=== PATIENT | female | born 1990 | race Caucasian/White ===

== ENCOUNTER 2017-11-28 13:05 | Emergency (ER) | payer OTHER ==
[~2017-11-28] VITALS: Ht 175.3 cm; Wt 74.8 kg
[2017-11-28] MEDS ORDERED: KETOROLAC TROME10 MG PO (15:26)
[2018-02-15] MEDS ORDERED: OXYCODONE HCL5 MG PO (18:15)
[2018-02-15] MEDS ORDERED: ZOFRAN4 MG PO (18:15)
== END 2017-11-28 15:35 | disposition home or self-care (01) ==
LOC: ED 13:05
DX: R10.30 Lower abdominal pain, unspecified (principal); F17.200 Nicotine dependence, unspecified, uncomplicated; Z90.49 Acquired absence of other specified parts of digestive tract; Z90.89 Acquired absence of other organs; Z98.890 Other specified postprocedural states; Z88.0 Allergy status to penicillin; Z88.5 Allergy status to narcotic agent; Z88.8 Allergy status to other drugs, medicaments and biological substances
CPT/HCPCS: 74177; 80053; 81001; 82150; 83690; 84703; 85025; 96361; 96374; 96375; 99284; J1170; J2405; J7030; Q9967

== ENCOUNTER 2018-01-27 17:10 | Emergency (ER) | payer OTHER ==
[~2018-01-27] VITALS: Ht 175.3 cm; Wt 74.8 kg
[~2018-01-27 17:10] MED LIST: KETOROLAC TROME10 MG PO
[2018-01-27] MEDS ORDERED: PYRIDIUM200 MG PO (18:59)
[2018-01-27] MEDS ORDERED: CIPRO250 MG PO (18:59)
[2018-01-28] MEDS ORDERED: BENADRYL25 MG PO (16:55)
[2018-01-28] MEDS ORDERED: MELATONIN1 MG PO (16:56)
[2018-02-15] MEDS ORDERED: OXYCODONE HCL5 MG PO (18:15)
[2018-02-15] MEDS ORDERED: ZOFRAN4 MG PO (18:15)
== END 2018-01-27 19:17 | disposition home or self-care (01) ==
LOC: ED 17:10
DX: N39.0 Urinary tract infection, site not specified (principal); F17.200 Nicotine dependence, unspecified, uncomplicated; Z88.0 Allergy status to penicillin; Z88.8 Allergy status to other drugs, medicaments and biological substances; Z88.5 Allergy status to narcotic agent
CPT/HCPCS: 74176; 80053; 81001; 84703; 85025; 87088; 96374; 96375; 99284; J1170; J1885; J2405

== ENCOUNTER 2018-01-28 12:32 | Inpatient (IN) | payer OTHER ==
[~2018-01-28] VITALS: Ht 175.3 cm; Wt 75.5 kg
[~2018-01-28 12:32] MED LIST changes: +CIPRO250 MG PO; +PYRIDIUM200 MG PO
--- NOTE | 2018-01-28 16:07 | NUR ---
PT ARRIVED BY STRETCHER, ALERT AND ORIENTED. PT ORIENTED TO ROOM, VITAL SIGNS TAKEN, ADMISSION ASSESSMENT COMPLETE AND CHARTED. DR WORLEY CAME IN TO DISCUSS UPDATED PLAN OF CARE AND CHANGES TO ABX.
[2018-01-28] MEDS ORDERED: BENADRYL25 MG PO (16:55)
[2018-01-28] MEDS ORDERED: MELATONIN1 MG PO (16:56)
--- NOTE | 2018-01-28 16:56 | NUR ---
MED REC COMPLETE
--- NOTE | 2018-01-28 17:54 | NUR ---
GAVE PT A WARM PACK TO ASSIST WITH PAIN. NO PAIN MEDS AVAILABLE FOR 2 MORE HOURS. PT HAS FAMILY VISITING. NO NEEDS AT THIS TIME.
--- NOTE | 2018-01-28 18:51 | NUR ---
PATIENT SITTING UP IN BED RESTING. PATIENT STATED PAIN WAS A 7 OUT OF 10. PATIENT ASKED WHEN NEXT PAIN MED WAS, THIS SENIOR ACCOUNTANT CPA TOLD HER SHE DID NOT KNOW BUT WOULD ASK THE NURSE. RN NOTIFIED. CALL LIGHT IN REACH. FRESH ICE WATER AT BEDSIDE. NO OTHER NEEDS AT THIS TIME.
--- NOTE | 2018-01-28 19:05 | NUR ---
RECEIVED REPORT FROM RN. PATIENT IS RESTING IN BED, BREATHING IS EVEN AND UNLABORED. REPORTS 7/10 PAIN IN ABD. CALL LIGHT WITHIN REACH.
--- NOTE | 2018-01-28 19:12 | NUR ---
CALLED DR WORLEY RE: PAIN CONTROL. IV DILAUDID NOT EFFECTIVE IN CONTROLLING PAIN FOR 3 HOURS. TELEPHONE ORDER TO CHANGE TO PERCOCET 10-325, 1 TAB Q4HRS PRN FOR PAIN.
--- NOTE | 2018-01-28 20:00 | NUR ---
PATIENT CONTINUES TO HAVE 7/10 PAIN IN PELVIS AND 5/10 BILATERAL FLANK PAIN. PRN DILAUDID AND PERCOCET GIVEN PER EMAR. DENIES FURTHER NEEDS. ASSESSMENT DONE. CALL LIGHT WITHIN REACH.
--- NOTE | 2018-01-28 23:07 | NUR ---
PT CALLED WITH COMPLAINTS OF NAUSEA AND PAIN AT 05/13. ADMINISTERED ZOFRAN AND DILAUDID. PT DENIES FURTHER NEEDS AT THIS TIME.
--- NOTE | 2018-01-28 23:27 | NUR ---
UPDATED DR. WORLEY REGARDING PATIENT'S PAIN. RECEIVED ORDER TO INCREASE PERCOCET TO 2 TABS Q[address]. ALSO UPDATED DR. WORLEY REGARDING BLOODY URINE. RECEIVED NO NEW ORDERS REGARDING URINE, RN TO MONITOR FOR THE NIGHT.
--- NOTE | 2018-01-29 00:27 | NUR ---
PATIENT REPORTS 6/10 PAIN IN PELVIS, PRN PERCOCET GIVEN PER EMAR. PATIENT DENIES FURTHER NEEDS. CALL LIGHT WITHIN REACH.
--- NOTE | 2018-01-29 01:59 | NUR ---
PATIENT REPORTS 5/10 PELVIC PAIN, PRN TYLENOL GIVEN PER EMAR. BP OF 95/60 NOTED, WILL CONTINUE TO MONITOR. PATIENT DENIES NEEDS AT THIS TIME. CALL LIGHT WITHIN REACH.
--- NOTE | 2018-01-29 04:35 | NUR ---
PATIENT RESTING IN BED, REPORTS 6/10 PAIN IN PELVIS AND FLANK. PRN PERCOCET GIVEN PER EMAR, SL ZOFRAN GIVEN FOR NAUSEA. DENIES FURTHER NEEDS. CALL LIGHT WITHIN REACH.
--- NOTE | 2018-01-29 05:04 | NUR ---
PATIENT HAS BEEN SLEEPING OFF AND ON THROUGHOUT SHIFT, VSS, URINE OUTPUT QS, PAIN NOW WELL CONTROLLED WITH INCREASE IN PRN PAIN MEDICATION. PAIN REMAINS IN PELVIS AND FLANK. PATIENT HAS HAD BLOODY URINE THIS SHIFT, MD WAS MADE AWARE, ORDERED TO MONITOR OVER NIGHT; NO WORSENING OR IMPROVEMENT. TOLERATING CLEAR LIQUID DIET, PATIENT STATES "I AM READY FOR SOME REAL FOOD." IV FLUIDS INFUSING, SBA TO BATHROOM. NO ACUTE CHANGES FROM BEGINNING OF SHIFT.
--- NOTE | 2018-01-29 06:57 | NUR ---
PATIENT RESTING COMFORTABLY IN BED, BREATHING IS EVEN AND UNLABORED. REPORTS 6/10 PAIN IN PELVIS, PRN PAIN MEDICATION GIVEN PER EMAR. DENIES FURTHER NEEDS. CALL LIGHT WITHIN REACH.
--- NOTE | 2018-01-29 08:30 | NUR ---
IN ROOM TO SEE PATIENT.
--- NOTE | 2018-01-29 08:40 | NUR ---
md at bedside to remove pts IUD. Pt tolerated well but requesting pain medication following removal.
--- NOTE | 2018-01-29 08:59 | NUR ---
PATIENT RESTING IN BED READING HER EDUCATION. PATIENT STATED SHE JUST HAD GOTTEN UP AND WIPED DOWN IN THE BATHROOM AND CHANGED INTO A CLEAN GOWN. THIS CHANGE AGENT SET PATIENT UP IN BATHROOM FOR ORAL CARE. PATIENT STATED SHE HAD DENTURES BUT PROBABLY WOULDN'T TAKE THEM OUT WHILE HERE BECAUSE SHE IS UNCOMFORTABLE ABOUT IT. PATIENT STATED SHE FELT NAUSEOUS BUT WOULD LIKE HER BREAKFAST TRAY LEFT IN HER ROOM IN CASE SHE FEELS BETTER LATER. CALL LIGHT IN REACH. NO OTHER NEEDS AT THIS TIME.
--- NOTE | 2018-01-29 09:14 | NUR ---
PT COMPLAINED OF NAUSEA AND ABD PAIN. PAIN /10. GAVE 2 TABS PERCOCET 10/325 PO. AT THIS TIME ALSO GAVE 4MG ZOFRAN IV.
--- NOTE | 2018-01-29 09:20 | NUR ---
GAVE 0.5MG DILAUDID IV.
--- NOTE | 2018-01-29 10:00 | NUR ---
IN ROOM TO CHECK ON PTS PAIN. PT STATED, "MY PAIN IS BETTER. ITS IS AT A 4." WILL CONTINUE TO MONITOR PTS PAIN.
--- NOTE | 2018-01-29 10:57 | NUR ---
PATIENT RESTING IN BED EYES CLOSED. PATIENT STATES PAIN HAS BEEN AT A 4 OUT OF 10. CALL LIGHT IN REACH. FRESH ICE WATER AT BEDSIDE TABLE. NO OTHER NEEDS AT THIS TIME.
--- NOTE | 2018-01-29 11:15 | NUR ---
PT REQUESTING AILEEN PAD AND UNDERWEAR. REPORTS HAVING SMALL AMOUNT OF VAGINAL BLEEDING. WILL CONTINUE TO MONITOR.
--- NOTE | 2018-01-29 12:50 | NUR ---
IN ROOM TO CHECK ON PT. DENIES NEED FOR PAIN MEDICATION AT THIS TIME.
--- NOTE | 2018-01-29 13:11 | NUR ---
PATIENT LAYING DOWN RESTING IN BED. PATIENT STATES SHE IS STILL TOO NAUSEOUS TO EAT. RN NOTIFIED. FRESH ICE WATER AT BEDSIDE TABLE. CALL LIGHT IN REACH. NO OTHER NEEDS AT THIS TIME.
--- NOTE | 2018-01-29 13:28 | NUR ---
pt rating pain 6/10 in lower adbomen. gave 0.5mg dilaudid iv. while in room pt up to bathroom. standby asssit. pt continues to have small amount of vaginal bleeding.
--- NOTE | 2018-01-29 16:01 | NUR ---
PATIENT RESTING WITH EYES CLOSED. FRESH ICE WATER AT BEDSIDE. CALL LIGHT IN REACH. NO OTHER NEEDS AT THIS TIME.
--- NOTE | 2018-01-29 16:16 | NUR ---
pt complained of pain 04/13. gave 2 tabs percocet 10/325 po.
--- NOTE | 2018-01-29 17:45 | NUR ---
in room with ptEdgar
--- NOTE | 2018-01-29 18:09 | NUR ---
PATIENT RESTING IN BED. PATIENT STATES SHE IS NAUSEATED AND ASKED FOR AN EMESIS BAG. RN IN ROOM. FRESH ICE WATER ON BEDSIDE TABLE. CALL LIGHT IN REACH. NO OTHER NEEDS AT THIS TIME.
--- NOTE | 2018-01-29 18:12 | NUR ---
PT HAD EMESIS X1 GAVE 12.5MG PHENERGAN IV.
--- NOTE | 2018-01-29 19:05 | NUR ---
RECEIVED REPORT FROM RN. PATIENT IS RESTING COMFORTABLY IN BED, BREATHING IS EVEN AND UNLABORED. FLACC SCORE OF 0. CALL LIGHT WITHIN REACH.
--- NOTE | 2018-01-29 20:32 | NUR ---
PATIENT RESTING COMFORTABLY IN BED, BREATHING IS EVEN AND UNLABORED. REPORTS 6/10 PAIN IN PELVIS. PRN DILAUDID GIVEN PER EMAR, BP OF 111/75, PULSE IS 64, RR OF 16 NOTED. WILL CONTINUE TO MONITOR. PATIENT DENIES FURTHER NEEDS. CALL LIGHT WITHIN REACH.
--- NOTE | 2018-01-29 23:03 | NUR ---
PATIENT IS RESTING COMFORTABLY IN BED, BREATHING IS EVEN AND UNLABORED. REPORTS NAUSEA, 5/10 PAIN IN PELVIS. PRN PROMETHAZINE GIVEN PER EMAR. IV INTACT, NO SIGNS OF INFILTRATION OR IMFLAMMATION. EDUCATED PATIENT TO NOTIFY NURSE OF PAIN AT IV SITE, PATIENT STATES UNDERSTANDING. CALL LIGHT WITHIN REACH.
--- NOTE | 2018-01-30 00:03 | NUR ---
PATIENT RESTING IN BED, BREATHING IS EVEN AND UNLABORED. REPORTS 6/10 PAIN IN PELVIS, PRN DILAUDID GIVEN PER EMAR. BP OF 101/54, PULSE IS 59, RR OF 16 NOTED. WILL CONTINUE TO MONITOR VITAL SIGNS. PATIENT REPORTS THAT IV PROMETHAZINE RELIEVED NAUSEA. NO FURTHER NEEDS AT THIS TIME. CALL LIGHT WITHIN REACH.
--- NOTE | 2018-01-30 04:34 | NUR ---
PATIENT RESTING COMFORTABLY IN BED, BREATHING IS EVEN AND UNLABORED, FLACC SCORE OF 0. CALL LIGHT WITHIN REACH.
--- NOTE | 2018-01-30 05:25 | NUR ---
PATIENT'S NIGHT WAS UNEVENTFUL. SHE HAS BEEN RESTING IN BED THROUGHOUT SHIFT. VSS, URINE OUTPUT QS. CONTINUES TO COMPLAIN OF 5 TO 6/10 PAIN IN PELVIS, RECEIVING IV DILAUDID PRN. CONTINUES TO HAVE SMALL AMOUNT OF BLOOD FROM VAGINA, NO ACUTE CHANGES. IV FLUIDS INFUSING, NPO SINCE MIDNIGHT. SBA IN ROOM, CALLS APPROPRIATELY. NO ACUTE CHANGES FROM BEGINNING OF SHIFT.
--- NOTE | 2018-01-30 06:48 | NUR ---
UPDATED DR. WORLEY REGARDING PATIENT'S HYPOTENSION AND BRADYCARDIA. PATIENT STATES SHE IS HAVING 6/10 PAIN IN PELVIS. PER MD, NO MEDICATION TO BE ADMINISTERED UNTIL AFTER HE IS ABLE TO ASSESS HER. NO OTHER ORDERS AT THIS TIME.
--- NOTE | 2018-01-30 07:33 | NUR ---
PATIENT RESTIN IN BED ON LEFT SIDE. UPDATED BOARD AND WARM BLANKET GIVEN. ANTONIA LIGHT IN REACH, NO OTHER NEEDS.
--- NOTE | 2018-01-30 08:21 | NUR ---
PT TO OR WITH [facility] SURGERY RN. INFORMED CONSENT SIGN AND ON CHART. PRE SURGICAL WIPES COMPLETED. PT REFUSED ORAL ANTIBIOTIC DUE TO NAUSEA.
--- NOTE | 2018-01-30 09:42 | NUR ---
PATIENT IN SURGERY. LINENS CHANGED, GARBAGE EMPTIED.
--- NOTE | 2018-01-30 11:18 | NUR ---
01/30/18 1118 Lakeshia Kovacs 1111 PT ARRIVED NONAROUSABLE WITH ORAL AIRWAY IN PLACE MAINTAINING AIRWAY. VSS. RESP EVEN AND UNLABORED. 1118 DECREASED O2 TO 8L O2 SAT 100%.
--- NOTE | 2018-01-30 12:15 | NUR ---
PT RECEIVED FROM PACU. PT RATING PAIN 5/10, DROWSY BUT AROUSABLE TO VOICE. PT GIVEN 0.5 MG IV DIALUDID FOR PAIN. PT ONB 2L NC, LUNG SOUNDS CLEAR, CONTINUOUS PULSE OX IN PLACE. PT WITH LAP SITES X3, SMALL AMOUNT OF SHADOWING TO BILATERAL LOW ABD DRESSINGS. PT CONTINUES TO COMPLAIN OF NAUSEA, CLEAR LIQUID DIET, PT ENCOURAGED TO DRINK SLOWLY. DISCUSSED PLAN OF CARE AND POST-OP TEACHING. PT DENIES OTHER NEEDS AT THIS TIME.
--- NOTE | 2018-01-30 13:00 | NUR ---
PT CONTINUES TO BE SLEEPY POST-OP, AROUSABLE TO VOICE. VSS. PT STATES PAIN 4/10. LAP SITES WILL SMALL AMOUNT OF SHADOWING, UNCHANGED FROM ARRIVAL TO FLOOR. PT DENIES OTHER NEEDS AT THIS TIME.
--- NOTE | 2018-01-30 14:40 | NUR ---
PT REQUESTING PAIN MEDICATION, RATING PAIN 7/10, GIVEN 0.5 MG IV DILAUDID. PT MORE AWAKE, ENCOURAGED TO ATTEMPT CLEAR LIQUID DIET. PT VERBALIZED UNDERSTANDING, ATTEMPTING TO EAT JELLO. PT WEANED TO ROOM AIR, O2 SATS 96%. PT ASSISTED TO BATHROOM, VOIDED WITHOUT DIFFICULTY, URINE BLOOD TINGES, SMALL CLOTS VISIBLE IN HAT. ASSISTED BACK TO BED. PT DENIES OTHER NEEDS AT THIS TIME.
--- NOTE | 2018-01-30 15:26 | NUR ---
PT RESTING IN BED. VSS. TOLERATING ROOM AIR, O2 SATS 96%. PT TOLERATING CLEAR LIQUID, ADVANCED TO REGULAR DIET, ASSISTED WITH ORDERING FOOD. PT DENIES OTHER NEEDS AT THIS TIME. LUNG SOUNDS CLEAR. BOWLE TONES HYPOACTIVE, PT HAS PASSED FLATUS.
--- NOTE | 2018-01-30 16:15 | NUR ---
PT TOLERATING REGULAR DIET, DENIES NAUSEA. PT GIVEN 1 TAB PERCOCET AND 800 MG IBUPROFEN. DISCUSSED PAIN MANAGEMENT WITH PT, VERBALIZED UNDERSTANDING. PT DENIES OTHER NEEDS AT THIS TIME.
--- NOTE | 2018-01-30 16:58 | NUR ---
PATIENT WATCHING TV IN BED. VITALS AND I/OS DONE. RT IN TO READ PULSE OX NUMBERS. CALL LIGHT IN REACH
[2018-01-30] MEDS ORDERED: PERCOCET 5-3251 EACH PO (18:18)
[2018-01-30] MEDS ORDERED: IBUPROFEN800 MG PO (18:19)
[2018-01-30] MEDS ORDERED: DOXYCYCLINE HY100 MG PO (18:19)
[2018-01-30] MEDS ORDERED: ZOFRAN ODT4 MG PO (18:28)
--- NOTE | 2018-02-01 09:45 | OR ---
[facility] [address] [place], [place] [address] Signed DATE OF OPERATION: 01/30/2018 SURGEON: Clarence Mckay MD PREOPERATIVE DIAGNOSES: Pelvic pain, bilateral hemorrhagic ovarian cyst, and pelvic inflammatory disease. POSTOPERATIVE DIAGNOSES: Pelvic pain, bilateral hemorrhagic ovarian cysts, and pelvic inflammatory disease. PROCEDURE: Laparoscopic right ovarian cystectomy. TRUST MANAGER: Dr. Freitas. ANESTHESIA: General. ESTIMATED BLOOD LOSS: 25 mL. SPECIMEN: Ovarian cyst wall. CULTURES: None. DRAINS: None. FINDINGS: Normal cervix. Normal size, shaped uterus. Anterior and posterior cul-de-sac was free of any endometriosis or adhesions. There was a small amount of clear fluid within the posterior cul-de-sac. Left tube was normal in length and the normal-appearing fimbriated end and the left ovary is normal size and shape without any evidence of endometriosis or adhesions. No cyst seen. Right tube was normal in length and normal-appearing fimbriated end and no adhesions. Right ovary was enlarged with a 2.5 cm hemorrhagic ovarian cyst in the posterior aspect of the ovary. There were no adhesions or lesions seen. The appendix appeared normal. The rest of the pelvis was Electronically Signed By: CLARENCE MCKAY MD 02/01/18 0945 PATIENT NAME: YULIANA LIM OPERATIVE REPORT DATE OF : 88 REPORT #: [id number] PHYSICIAN: CLARENCE MCKAY MD PCP: AMBER BELL REPORT IS CONFIDENTIAL AND NOT TO BE RELEASED WITHOUT AUTHORIZATION [facility] [address], [place] [address] Signed free of any masses or adhesions. COMPLICATIONS: None. DESCRIPTION OF PROCEDURE: The patient was brought to the operating room and placed in supine position. After adequate general anesthesia was obtained, she was placed in dorsal lithotomy position, prepped and draped in usual sterile fashion. Coleman catheter was placed in the bladder. Weighted speculum was placed in the vagina and the anterior lip of cervix grasped with an Allis clamp. Uterine cavity was sounded to 9 cm and Hulka clamp carefully introduced into the cervical canal, attached to the anterior lip of the cervix. The Allis clamp and weighted speculum were removed. Attention was then drawn to the abdomen. A small infraumbilical skin incision was made through previous surgical scar after injecting with 0.5% Marcaine. Subcutaneous tissue was grasped with hemostats elevated and nicked with Metzenbaum scissors. The fascia was identified, grasped with hemostats elevated and nicked with Metzenbaum scissors, and extended transverse fashion using Metzenbaum scissors. Retention stitches of 0 Vicryl suture was placed in the fascia above and below the incision. Peritoneum was opened with blunt dissection and an S retractor inserted into the incision and spun 360 degree fashion showing good placement in the abdomen and no adhesions noted. The Aneudy cannula and sleeve entered the abdomen along the S retractor. The S retractor was then removed and the sleeve tied in place with the retention stitches. The trocar was removed and the laparoscope with video attachment entered the abdomen under direct visualization. Carbon dioxide was used as distending medium, the above findings were noted. A small skin incision was made in the left lower quadrant after transilluminating the area to avoid any vessels and injecting the area with 0.5% Marcaine. A bladed 5 mm trocar and sleeve then placed through the incision and entered the abdomen under direct visualization. Trocar was removed and the blunt probe inserted. Sleeve was placed on the right side in the exact same fashion and the blunt probe inserted. The above findings were confirmed. The fluid was irrigated from the cul-de-sac. The right ovary was grasped with blunt graspers and elevated and a small tip Bovie was used to open the right cyst wall and thin avascular portion and thin blood was noted to come from the cyst. The incision was opened further using the Bovie and the cyst irrigated and then the cyst wall could be identified and this was grasped with graspers and gently pulled free of the ovary. The cyst wall did come out in several pieces, but cyst wall did seem to completely be removed. The ovary was irrigated within the area of the cyst and small amount of bleeding was noted on the lateral aspect inside the ovary and this was cauterized with laparoscopic tip Bovie and once good hemostasis Electronically Signed By: CLARENCE MCKAY MD 02/01/18 0945 PATIENT NAME: YULIANA LIM OPERATIVE REPORT DATE OF : 88 REPORT #: [id number] PHYSICIAN: CLARENCE MCKAY MD PCP: AMBER BELL REPORT IS CONFIDENTIAL AND NOT TO BE RELEASED WITHOUT AUTHORIZATION [facility] [address], [place] [address] Signed was obtained, the cyst area was again irrigated, suctioned and then the cyst filled with Evicel to help with further coagulation. The cyst was grasped with blunt graspers and pressure held. The cyst was closed for several minutes. Once this was released, the entire pelvis was irrigated, suctioned, and examined and noted to have good hemostasis. The ovary had good hemostasis. At this point, all instruments were removed from the abdomen. The gas allowed to escape and all the sleeves were removed. The fascia was closed using running stitch of 0 Vicryl suture. The remaining portion the Evicel was placed in incision to help with hemostasis. The 2 retention stitches were then tied together for further support of the fascia. The 3 skin incisions were closed using subcuticular stitches of 4-0 Vicryl suture. The Coleman catheter and the Hulka clamp were removed at the end of the procedure. The patient tolerated the procedure well and went to recovery room in good condition. Sponge, needle, and instrument counts were correct at the end of procedure. The hemorrhagic cyst wall was sent to Pathology for identification. Clarence Mckay MD MJB/MODL /[id number] Copies: ~ Electronically Signed By: CLARENCE MCKAY MD 02/01/18 0945 PATIENT NAME: YULIANA LIM OPERATIVE REPORT DATE OF : 88 REPORT #: [id number] PHYSICIAN: CLARENCE MCKAY MD PCP: AMBER BELL REPORT IS CONFIDENTIAL AND NOT TO BE RELEASED WITHOUT AUTHORIZATION
[2018-02-15] MEDS ORDERED: ZOFRAN4 MG PO (18:15)
[2018-02-15] MEDS ORDERED: OXYCODONE HCL5 MG PO (18:15)
== END 2018-01-30 18:50 | disposition home or self-care (01) | DRG 742 ==
LOC: ED 12:32 → MS 12:34
PROVIDERS: ADMIT General Practice
PROC: 0UPDXHZ Removal of Contraceptive Device from Uterus and Cervix, External Approach (ICD-10-PCS; 2018-01-29)
PROC: 0UB04ZZ Excision of Right Ovary, Percutaneous Endoscopic Approach (ICD-10-PCS; principal; 2018-01-30 08:15)
DX: N83.202 Unspecified ovarian cyst, left side (principal); N39.0 Urinary tract infection, site not specified; N83.201 Unspecified ovarian cyst, right side; N73.9 Female pelvic inflammatory disease, unspecified; F17.200 Nicotine dependence, unspecified, uncomplicated; G62.9 Polyneuropathy, unspecified; D89.89 Other specified disorders involving the immune mechanism, not elsewhere classified; R11.2 Nausea with vomiting, unspecified; Z97.5 Presence of (intrauterine) contraceptive device; Z87.74 Personal history of (corrected) congenital malformations of heart and circulatory system; Z79.899 Other long term (current) drug therapy; Z88.5 Allergy status to narcotic agent; Z88.0 Allergy status to penicillin; Z88.8 Allergy status to other drugs, medicaments and biological substances
CPT/HCPCS: 00840; 36415; 76830; 76856; 80048; 85025; 85610; 85730; 87070; 87075; 87186; 87205; 87491; 87591; 88305; 94762; 96374; 96375; 96376; 99285; G0378; J0330; J0694; J1100; J1170; J1885; J2250; J2405; J2550; J2704; J2710; J2765; J3010; J7030; J7120

== ENCOUNTER 2018-02-02 15:39 | Emergency (ER) | payer OTHER ==
[~2018-02-02] VITALS: Ht 175.3 cm; Wt 75.5 kg
[~2018-02-02 15:39] MED LIST changes: +BENADRYL25 MG PO; +DOXYCYCLINE HY100 MG PO; +IBUPROFEN800 MG PO; +MELATONIN1 MG PO; +PERCOCET 5-3251 EACH PO; +ZOFRAN ODT4 MG PO
[2018-02-02] MEDS ORDERED: PERCOCET 5-3251 EACH PO (19:30)
[2018-02-15] MEDS ORDERED: OXYCODONE HCL5 MG PO (18:15)
[2018-02-15] MEDS ORDERED: ZOFRAN4 MG PO (18:15)
== END 2018-02-02 19:40 | disposition home or self-care (01) ==
LOC: ED 15:39
PROC: 0T9B70Z Drainage of Bladder with Drainage Device, Via Natural or Artificial Opening (ICD-10-PCS; principal; 2018-02-02)
DX: G89.18 Other acute postprocedural pain (principal); R10.2 Pelvic and perineal pain; F17.200 Nicotine dependence, unspecified, uncomplicated; Z90.49 Acquired absence of other specified parts of digestive tract; Z88.0 Allergy status to penicillin; Z88.8 Allergy status to other drugs, medicaments and biological substances; Z88.5 Allergy status to narcotic agent; Z79.899 Other long term (current) drug therapy
CPT/HCPCS: 51701; 76830; 76856; 80053; 81001; 85025; 96374; 96375; 99284; J1170; J1885

== ENCOUNTER 2018-04-07 20:17 | Emergency (ER) | payer OTHER ==
[~2018-04-07] VITALS: Ht 175.3 cm; Wt 75.5 kg
[~2018-04-07 20:17] MED LIST changes: +OXYCODONE HCL5 MG PO; +ZOFRAN4 MG PO
== END 2018-04-07 21:55 | disposition home or self-care (01) ==
LOC: ED 20:17
DX: R10.2 Pelvic and perineal pain (principal); F17.200 Nicotine dependence, unspecified, uncomplicated; Z88.0 Allergy status to penicillin; Z88.8 Allergy status to other drugs, medicaments and biological substances; Z88.5 Allergy status to narcotic agent
CPT/HCPCS: 80053; 81001; 84703; 85025; 87491; 87591; 96374; 99284; J1885

== ENCOUNTER 2018-06-17 18:11 | Emergency (ER) | payer OTHER ==
[~2018-06-17] VITALS: Ht 175.3 cm; Wt 75.5 kg
--- OUTSIDE RECORDS SUMMARY | ~2018-06-17 | XMS | Clinical Summary ---
Demographics + + + | Address | [address] | | | [place] [address] | + + + | Home Phone | | + + + | Preferred Language | Unknown | + + + | Marital Status | Single | + + + | Advent Affiliation | Unknown | + + + | Race | Unknown | + + + | Ethnic Group | Unknown | + + + Author + + + | Author | [facility] | | | and [place] | + + + | Organization | [facility] | | | and [place] | + + + | Address | Unknown | + + + | Phone | Unavailable | + + + Support + + +---------+ + | Name | Relationship | Address | Phone | + + +---------+ + | Marie Connolly | ECON | Unknown | | + + +---------+ + Care Team Providers + +------+ + | Care Registered Route Associate Name | Role | Phone | + +------+ + | No, Physician | PP | Unavailable | + +------+ + Allergies + + + + + + | Active Allergy | Reactions | Severity | Noted | Comments | | | | | Date | | + + + + + + | Butorphanol | | | 05/01/20 | | | | | | 17 | | + + + + + + | Hydrocodone | Nausea And Vomiting | | 05/01/20 | | | | | | 17 | | + + + + + + | Penicillins | Rash | Low | 05/01/20 | | | | | | 17 | | + + + + + + | Prochlorperazine | | | 05/01/20 | | | | | | 17 | | + + + + + + | Tramadol | Nausea And Vomiting | | 05/01/20 | | | | | | 17 | | + + + + + + Current Medications No known medications Active Problems Not on file Social History + + + +--------+------+ | Tobacco Use | Types | Packs/Day | Years | Date | | | | | Used | | + + + +--------+------+ | Current Some Day | Cigarettes | | | | | Smoker | | | | | + + + +--------+------+ + + +---------+ + | Alcohol Use | Drinks/We | oz/Week | Comments | | | ek | | | + + +---------+ + | Yes | 3 | 1.8 | | | | Standard | | | | | drinks or | | | | | | | | | | equivalen | | | | | t | | | + + +---------+ + + + + | Sex Assigned at | Date Recorded | | | | + + + | Not on file | | + + + Last Filed Vital Signs + + + + | Vital Sign | Reading | Time Taken | + + + + | Blood Pressure | 108/70 | 01/01/20186 PST | + + + + | Pulse | 78 | 01/01/20181405 PST | + + + + | Temperature | 36.9 C (98.5 F) | 01/01/20181405 PST | + + + + | Respiratory Rate | 16 | 01/01/20181405 PST | + + + + | Oxygen Saturation | 98% | 01/01/20181405 PST | + + + + | Inhaled Oxygen | - | - | | Concentration | | | + + + + | Weight | 76.2 kg (168 lb) | 05/01/20171715 PDT | + + + + | Height | 175.3 cm (5' 9") | 05/01/20171715 PDT | + + + + | Body Mass Index | 24.81 | 05/01/20171715 PDT | + + + + Plan of Treatment + + + + + | Health Maintenance | Due Date | Last Done | Comments | + + + + + | Vaccine: | | | | | Pneumococcal 19-64 | 8 | | | | (PPSV23 only) Medium | | | | | Risk (1 of 1 - | | | | | PPSV23) | | | | + + + + + | Cervical Cancer | | | | | Screening (Pap) | 0 | | | + + + + + | Vaccine: Influenza | | 08/19/2014 | | | (#1) | 8 | | | + + + + + | Vaccine: | | 08/19/2014 | | | Dtap/Tdap/Td (2 - | 4 | | | | Td) | | | | + + + + + Results Not on filefrom Last 3 Months Insurance + +--------+ +--------+ +---------+ | Payer | Benefi | Subscriber | Type | Phone | Address | | | t Plan | ID | | | | | | / | | | | | | | Group | | | | | + +--------+ +--------+ +---------+ | [employer] | [employer] | [id number] | [employer] | [phone] | | MEDICAID HMO | HEALTH | | id | [phone] | | | | [place] | | | | | | | [place] | | | | | + +--------+ +--------+ +---------+ + +--------+ +--------+ + + | Guarantor Name | Accoun | Relation to | Date | Phone | Billing Address | | | t Type | Patient | of | | | | | | | | | | + +--------+ +--------+ + + | GLORIA GOMEZ | Person | Self [birth year] Home: | [address] | | | al/Fam | | 1989 | [phone] | [address] [place] | | | dagmar | | [phone] | + +--------+ +--------+ + +
[2018-06-17] MEDS ORDERED: TYLENOL EXTRA500 MG PO (18:26)
== END 2018-06-17 21:10 | disposition home or self-care (01) ==
LOC: ED 18:11
DX: R10.2 Pelvic and perineal pain (principal); F17.200 Nicotine dependence, unspecified, uncomplicated; Z88.0 Allergy status to penicillin; Z88.8 Allergy status to other drugs, medicaments and biological substances; Z88.5 Allergy status to narcotic agent; Z79.899 Other long term (current) drug therapy
CPT/HCPCS: 76830; 76856; 80053; 81001; 85025; 96374; 96375; 99284; G0480; J2405; J3010